=== PATIENT | male | born 1945 | race African-American/Black ===

== ENCOUNTER 2022-07-10 18:20 | Inpatient (IN) | payer OTHER ==
[~2022-07-10] VITALS: Ht 180.3 cm; Wt 60.3 kg
[~2022-07-10 18:20] MED LIST: CYAN50003 PO; EMTR1TAB11 PO; NEVI400T5 PO; OXYC-662 MT; [UNRECOGNIZED DRUG - CODE] PO
[2022-07-10] MEDS ORDERED: MORPHINE SULFATE 4 MG/ML CPJ (NOT FOR IM USE) IV STA (19:30)
[2022-07-10] MEDS ORDERED: SODIUM CHLORIDE 0.9% 1000ML BAG (SEPSIS BOLUS) IV ONE (19:30)
[2022-07-10] MEDS ORDERED: METOPROLOL TARTRATE 5MG/5ML VIAL IV ONE ×2 (19:30→23:30)
[2022-07-10 20:26] LABS: BASOPHILS % 0.2 % (0.0-2.0); HEMATOCRIT. 53.7 % (42.0-52.0); HEMOGLOBIN. 18.1 g/dL (14.0-18.0); MEAN CORPUSCULAR HEMOGLOBIN 34.5 pg (28.0-32.0); MEAN CORPUSCULAR VOLUME 102.3 fL (80.0-94.0); MEAN PLATELET VOLUME 7.1 fl (7.4-10.4); MONOCYTES % 7.9 % (2.0-8.0); NEUTROPHILS % 76.9 % (40.0-76.0); PLATELET 284 x1000/uL (130-400); RED BLOOD CELL COUNT 5.25 mill/uL (4.7-6.1); RED CELL DISTRIBUTION WIDTH 13.4 % (11.6-14.6)
[2022-07-10 20:35] LABS: CHLORIDE 99 mEq/L (98-107)
[2022-07-10] MEDS ORDERED: CEFTRIAXONE 1 G PREMIX 50 ML IV NR (21:30)
[2022-07-10] MEDS ORDERED: IOHEXOL-300 100 ML BOTTLE ONE (21:57)
[2022-07-10 22:40] LABS: CLARITY URINE CLEAR (CLEAR); COLOR URINE YELLOW (YELLOW); KETONES URINE NEGATIVE (NEGATIVE); LEUKOCYTE ESTERASE URINE NEGATIVE (NEGATIVE); NITRITE URINE NEGATIVE (NEGATIVE); OCCULT BLOOD URINE 1+ (NEGATIVE); PROTEIN URINE NEGATIVE (NEGATIVE); SPECIFIC GRAVITY URINE 1.028 (1.005-1.030); UROBILINOGEN URINE 0.2 E.U./dL (0.2-1.0)
[2022-07-10 22:58] LABS: *AMPHETAMINES SCREEN URINE NEGATIVE (NEGATIVE); *BARBITURATES SCREEN URINE PRESUMTIVE POSITIVE (NEGATIVE); *BENZODIAZEPINES SCREEN URINE NEGATIVE (NEGATIVE); *COCAINE SCREEN URINE NEGATIVE (NEGATIVE); CANNABINOID URINE SCREEN NEGATIVE (NEGATIVE); METHADONE URINE SCREEN NEGATIVE (NEGATIVE); OPIATES URINE SCREEN PRESUMTIVE POSITIVE (NEGATIVE); PHENCYCLIDINE URINE SCREEN NEGATIVE (NEGATIVE)
[2022-07-10] MEDS ORDERED: MORPHINE SULFATE 4 MG/ML CPJ (NOT FOR IM USE) IV ONE (23:15)
[2022-07-10 23:55] VITALS: BP 146/100
[2022-07-11] MEDS ORDERED: METOPROLOL TARTRATE 50MG TABLET PO NR (03:00)
[2022-07-11] MEDS: ACETAMINOPHEN 325MG TABLET PO PRN ×2 (03:41→17:26)
[2022-07-11] MEDS: HYDROCODONE/ACETAMINOPHEN 5/325MG TABLET PO PRN ×4 (04:25→19:11)
[2022-07-11 08:00] VITALS: BP 122/87
[2022-07-11] MEDS: METOPROLOL TARTRATE 50MG TABLET PO SCH ×2 (08:47→21:22)
[2022-07-11 10:30] LABS: BASOPHILS % 0.2 % (0.0-2.0); EOSINOPHILS % 0.1 % (0.0-5.0); HEMATOCRIT. 47.1 % (42.0-52.0); HEMOGLOBIN. 15.8 g/dL (14.0-18.0); LYMPHOCYTES % 19.6 % (20.0-50.0); MEAN CORPUSCULAR HEMOGLOBIN 34.5 pg (28.0-32.0); MEAN CORPUSCULAR VOLUME 102.9 fL (80.0-94.0); MEAN PLATELET VOLUME 6.8 fl (7.4-10.4); MONOCYTES % 6.8 % (2.0-8.0); NEUTROPHILS % 73.3 % (40.0-76.0); PLATELET 270 x1000/uL (130-400); RED BLOOD CELL COUNT 4.58 mill/uL (4.7-6.1); RED CELL DISTRIBUTION WIDTH 13.4 % (11.6-14.6)
[2022-07-11 10:32] LABS: CHLORIDE 104 mEq/L (98-107)
[2022-07-11 10:47] LABS: HDL CHOLESTEROL 44 mg/dL (40-59); LDL CHOLESTEROL 82 mg/dL (5-100)
[2022-07-11] MEDS ORDERED: CEFTRIAXONE 1 G PREMIX 50 ML IV SCH (12:00)
[2022-07-11 12:09] VITALS: BP 130/83
[2022-07-11] MEDS: ENOXAPARIN 40MG/0.4ML SYR SUBCUT SCH (13:41)
[2022-07-11] MEDS ORDERED: POTASSIUM CHLORIDE 20MEQ TABLET SR PO NR (15:45)
[2022-07-11] MEDS: LOSARTAN POTASSIUM 25 MG TABLET PO SCH (15:45)
[2022-07-11 16:00] VITALS: BP 137/94
[2022-07-11] MEDS: AMIODARONE HCL 200 MG TABLET PO SCH (16:38)
[2022-07-11] MEDS ORDERED: NALOXONE HCL 0.4MG/ML VIAL IV PRN (19:30)
[2022-07-11 20:00] VITALS: BP 134/86
[2022-07-11] MEDS ORDERED: CEFTRIAXONE 1,000 MG in DEXTROSE 5% WATER 50 ML IV SCH (22:00)
[2022-07-12] VITALS (7 sets, daily range): BP systolic 116–155; BP diastolic 70–90
[2022-07-12] MEDS: HYDROCODONE/ACETAMINOPHEN 5/325MG TABLET PO PRN ×3 (02:00→12:37)
[2022-07-12] MEDS: AMIODARONE HCL 200 MG TABLET PO SCH ×2 (09:25→21:22)
[2022-07-12] MEDS: METOPROLOL TARTRATE 50MG TABLET PO SCH ×2 (09:26→21:22)
[2022-07-12] MEDS: LOSARTAN POTASSIUM 25 MG TABLET PO SCH (09:26)
[2022-07-12] MEDS: ENOXAPARIN 40MG/0.4ML SYR SUBCUT SCH (12:38)
[2022-07-12 15:38] LABS: CHLORIDE 102 mEq/L (98-107)
== END 2022-07-12 21:30 | disposition home or self-care (01) | DRG 309 ==
LOC: ER 18:20 → 6WST 22:29 → ENRESERV 23:14
PROVIDERS: ADMIT Internal Medicine; ATTEND Internal Medicine
DX: I48.0 Paroxysmal atrial fibrillation (principal); I50.22 Chronic systolic (congestive) heart failure; M54.50 Low back pain, unspecified; I11.0 Hypertensive heart disease with heart failure; J44.9 Chronic obstructive pulmonary disease, unspecified; N13.9 Obstructive and reflux uropathy, unspecified; E87.6 Hypokalemia; Z79.899 Other long term (current) drug therapy; Z88.8 Allergy status to other drugs, medicaments and biological substances
CPT/HCPCS: 36415; 71045; 72148; 74177; 80048; 80053; 80061; 80305; 81003; 83605; 84145; 84436; 84443; 84484; 85025; 93005; 93306; 97162; 99291; J0696; J1650; J2270; J3490; J7030; J7060; Q9967

== ENCOUNTER 2022-09-20 02:34 | Inpatient (IN) | payer MEDICARE, OTHER ==
[~2022-09-20] VITALS: Ht 180.3 cm; Wt 61.8 kg
[2022-09-20] MEDS ORDERED: SODIUM CHLORIDE 0.9% 1,000 ML IV ONE (03:45)
[2022-09-20] MEDS ORDERED: ACETAMINOPHEN 325MG TABLET PO STA (03:45)
[2022-09-20] MEDS ORDERED: METOCLOPRAMIDE HCL 10MG/2ML VIAL IV ONE (04:00)
[2022-09-20 04:10] LABS: CHLORIDE 103 mEq/L (98-107)
[2022-09-20 04:29] LABS: BASOPHILS % 0.6 % (0.0-2.0); EOSINOPHILS % 4.3 % (0.0-5.0); LYMPHOCYTES % 22.2 % (20.0-50.0); MEAN CORPUSCULAR HEMOGLOBIN 34.3 pg (28.0-32.0); MEAN CORPUSCULAR VOLUME 100.5 fL (80.0-94.0); MEAN PLATELET VOLUME 7.1 fl (7.4-10.4); NEUTROPHILS % 62.9 % (40.0-76.0); PLATELET 167 x1000/uL (130-400); RED BLOOD CELL COUNT 3.79 mill/uL (4.7-6.1)
[2022-09-20] MEDS ORDERED: ASPIRIN 81MG TABLET PO ONE (06:45)
[2022-09-20] MEDS ORDERED: MORPHINE SULFATE 4 MG/ML CPJ (NOT FOR IM USE) IV ONE (08:15)
[2022-09-20] MEDS ORDERED: HEPARIN 5000 UNITS/ML VIAL IV ONE (08:15)
[2022-09-20] MEDS ORDERED: KETOROLAC 30MG/ML VIAL IV ONE (15:15)
[2022-09-20 16:30] VITALS: BP 134/82
[2022-09-20] MEDS ORDERED: ACETAMINOPHEN 325MG TABLET PO PRN (17:30)
[2022-09-20] MEDS ORDERED: ONDANSETRON HCL 4MG/2ML INJ IV PRN (17:30)
[2022-09-20] MEDS ORDERED: OXYC-662 MT (19:06)
[2022-09-20 20:00] VITALS: BP 105/90
[2022-09-20] MEDS ORDERED: INFLUENZA VACCINE 05/PF 0.5 ML SYRINGE IM ONE (21:15)
[2022-09-20 21:26] LABS: CREATINE KINASE MB FRACTION 2.4 ng/mL (0.5-3.6)
[2022-09-21] VITALS: BP 125/84
[2022-09-21] MEDS: IPRATROPIUM/ALBUTEROL 0.5-3(2.5)MG/3ML NEB HHN PRN (00:03)
[2022-09-21] MEDS: HYDROCODONE/ACETAMINOPHEN 5/325MG TABLET PO PRN ×5 (00:36→23:17)
[2022-09-21 03:25] VITALS: BP 122/79
[2022-09-21 08:00] VITALS: BP 146/97
[2022-09-21] MEDS ORDERED: CLONIDINE 0.1MG TABLET PO PRN (10:45)
[2022-09-21 11:55] VITALS: BP 136/90
[2022-09-21] MEDS: ASPIRIN 81MG EC TABLET PO SCH (13:15)
[2022-09-21] MEDS: LOSARTAN POTASSIUM 50 MG TABLET PO SCH (13:31)
[2022-09-21] MEDS: NITROGLYCERIN OINT 1GM/INCH UDPKT TD SCH ×2 (13:31→21:37)
[2022-09-21 14:39] LABS: BASOPHILS % 0.5 % (0.0-2.0); EOSINOPHILS % 6.2 % (0.0-5.0); HEMATOCRIT. 35.3 % (42.0-52.0); HEMOGLOBIN. 12.1 g/dL (14.0-18.0); LYMPHOCYTES % 22.2 % (20.0-50.0); MEAN CORPUSCULAR HEMOGLOBIN 34.6 pg (28.0-32.0); MEAN CORPUSCULAR VOLUME 100.9 fL (80.0-94.0); MEAN PLATELET VOLUME 6.9 fl (7.4-10.4); MONOCYTES % 8.7 % (2.0-8.0); NEUTROPHILS % 62.4 % (40.0-76.0); PLATELET 169 x1000/uL (130-400); RED CELL DISTRIBUTION WIDTH 12.8 % (11.6-14.6)
[2022-09-21 14:48] LABS: CHLORIDE 104 mEq/L (98-107)
[2022-09-21 16:00] VITALS: BP 116/70
[2022-09-21] MEDS: AMLODIPINE 5MG TABLET PO SCH (16:02)
[2022-09-21 20:00] VITALS: BP 157/112
[2022-09-22] VITALS: BP 144/100
[2022-09-22] MEDS: IPRATROPIUM/ALBUTEROL 0.5-3(2.5)MG/3ML NEB HHN PRN (00:38)
[2022-09-22] MEDS ORDERED: *PATIENT'S OWN MEDICATION STORAGE XX SCH (01:00)
[2022-09-22] MEDS: HYDROCODONE/ACETAMINOPHEN 5/325MG TABLET PO PRN ×2 (03:50→18:13)
[2022-09-22 04:00] VITALS: BP 139/92
[2022-09-22] MEDS: NITROGLYCERIN OINT 1GM/INCH UDPKT TD SCH (05:11)
[2022-09-22 08:00] VITALS: BP 133/89
[2022-09-22 08:26] LABS: BASOPHILS % 0.3 % (0.0-2.0); EOSINOPHILS % 8.4 % (0.0-5.0); HEMATOCRIT. 34.2 % (42.0-52.0); HEMOGLOBIN. 11.8 g/dL (14.0-18.0); LYMPHOCYTES % 22.3 % (20.0-50.0); MEAN CORPUSCULAR HEMOGLOBIN 34.2 pg (28.0-32.0); MEAN CORPUSCULAR VOLUME 99.2 fL (80.0-94.0); MONOCYTES % 8.2 % (2.0-8.0); NEUTROPHILS % 60.8 % (40.0-76.0); PLATELET 146 x1000/uL (130-400); RED BLOOD CELL COUNT 3.44 mill/uL (4.7-6.1); RED CELL DISTRIBUTION WIDTH 12.9 % (11.6-14.6)
[2022-09-22 08:46] LABS: CHLORIDE 102 mEq/L (98-107)
[2022-09-22] MEDS: ASPIRIN 81MG EC TABLET PO SCH (09:30)
[2022-09-22] MEDS: LOSARTAN POTASSIUM 50 MG TABLET PO SCH (09:30)
[2022-09-22] MEDS: AMLODIPINE 5MG TABLET PO SCH (09:30)
[2022-09-22 12:00] VITALS: BP_SYST 112; BP_SYST 113; BP_DIAS 61; BP_DIAS 68
[2022-09-22] MEDS: AMLODIPINE 2.5MG TABLET PO SCH (12:20)
[2022-09-22 16:00] VITALS: BP 119/78
[2022-09-22 20:00] VITALS: BP 156/95
[2022-09-22] MEDS: KETOROLAC 15MG/ML VIAL IV PRN (22:17)
[2022-09-22] MEDS ORDERED: ENOXAPARIN 60MG/0.6ML SYR SUBCUT NR (22:27)
[2022-09-23] VITALS: BP 136/95
[2022-09-23] MEDS: IPRATROPIUM/ALBUTEROL 0.5-3(2.5)MG/3ML NEB HHN PRN (01:09)
[2022-09-23 04:00] VITALS: BP 140/94
[2022-09-23] MEDS: KETOROLAC 15MG/ML VIAL IV PRN ×3 (04:43→17:23)
[2022-09-23 07:17] LABS: BASOPHILS % 0.3 % (0.0-2.0); EOSINOPHILS % 8.1 % (0.0-5.0); HEMATOCRIT. 34.1 % (42.0-52.0); LYMPHOCYTES % 18.8 % (20.0-50.0); MEAN CORPUSCULAR HEMOGLOBIN 34.5 pg (28.0-32.0); MEAN CORPUSCULAR VOLUME 98.4 fL (80.0-94.0); MONOCYTES % 8.3 % (2.0-8.0); NEUTROPHILS % 64.5 % (40.0-76.0); PLATELET 153 x1000/uL (130-400); RED BLOOD CELL COUNT 3.47 mill/uL (4.7-6.1); RED CELL DISTRIBUTION WIDTH 12.9 % (11.6-14.6)
[2022-09-23 07:21] LABS: INR 0.9; PROTHROMBIN TIME 10.2 sec (9.6-11.0)
[2022-09-23 08:30] VITALS: BP 138/89
[2022-09-23] MEDS: AMLODIPINE 2.5MG TABLET PO SCH (09:24)
[2022-09-23] MEDS: LOSARTAN POTASSIUM 50 MG TABLET PO SCH (09:24)
[2022-09-23] MEDS: ASPIRIN 81MG EC TABLET PO SCH (09:24)
[2022-09-23] MEDS: ENOXAPARIN 60MG/0.6ML SYR SUBCUT SCH ×2 (09:25→20:53)
[2022-09-23 09:53] LABS: CHLORIDE 105 mEq/L (98-107)
[2022-09-23 12:00] VITALS: BP 142/87
[2022-09-23 16:00] VITALS: BP 138/88
[2022-09-23] MEDS: AMLODIPINE 5MG TABLET PO SCH (17:24)
[2022-09-23 20:00] VITALS: BP 142/90
[2022-09-24] VITALS: BP 137/85
[2022-09-24] MEDS: KETOROLAC 15MG/ML VIAL IV PRN (01:04)
[2022-09-24 04:00] VITALS: BP 143/98
[2022-09-24 07:50] VITALS: BP 141/97
[2022-09-24 08:45] LABS: BASOPHILS % 0.4 % (0.0-2.0); EOSINOPHILS % 6.3 % (0.0-5.0); HEMATOCRIT. 36.8 % (42.0-52.0); HEMOGLOBIN. 12.5 g/dL (14.0-18.0); MEAN CORPUSCULAR HEMOGLOBIN 33.8 pg (28.0-32.0); MEAN CORPUSCULAR VOLUME 99.4 fL (80.0-94.0); MONOCYTES % 7.4 % (2.0-8.0); NEUTROPHILS % 66.9 % (40.0-76.0); PLATELET 159 x1000/uL (130-400); RED CELL DISTRIBUTION WIDTH 13.2 % (11.6-14.6)
[2022-09-24] MEDS ORDERED: NALOXONE HCL 0.4MG/ML VIAL IV PRN (09:00)
[2022-09-24] MEDS: AMLODIPINE 5MG TABLET PO SCH (09:11)
[2022-09-24] MEDS: LOSARTAN POTASSIUM 50 MG TABLET PO SCH (09:11)
[2022-09-24] MEDS: ASPIRIN 81MG EC TABLET PO SCH (09:11)
[2022-09-24] MEDS: ENOXAPARIN 60MG/0.6ML SYR SUBCUT SCH (09:12)
[2022-09-24 09:13] LABS: CHLORIDE 102 mEq/L (98-107)
[2022-09-24] MEDS ORDERED: FAMOTIDINE 20MG/2ML VIAL IV NR (10:15)
[2022-09-24] MEDS ORDERED: METHYLPREDNISOLONE SOD SUCC 125 MG/2 ML VIAL IV NR (10:15)
[2022-09-24] MEDS ORDERED: DIPHENHYDRAMINE 50MG/ML VIAL IV NR (10:15)
[2022-09-24] MEDS ORDERED: IOHEXOL-350 100 ML BOTTLE ONE ×2 (11:33→12:03)
[2022-09-24 12:00] VITALS: BP 145/93
[2022-09-24 15:03] VITALS: BP 140/89
== END 2022-09-24 17:41 | disposition home or self-care (01) | DRG 311 ==
LOC: ER 02:44 → 7EST 12:58 → EDBEDREQTM 13:02 → EDBEDREQSVC 13:02 → EDBEDREQ 13:02 → 7EST 09-24 08:51
PROVIDERS: ADMIT Internal Medicine; ATTEND Internal Medicine
DX: I24.8 Other forms of acute ischemic heart disease (principal); G96.08 Other cranial cerebrospinal fluid leak; Z68.1 Body mass index [BMI] 19.9 or less, adult; E44.1 Mild protein-calorie malnutrition; I10 Essential (primary) hypertension; Z20.822 Contact with and (suspected) exposure to COVID-19; J44.9 Chronic obstructive pulmonary disease, unspecified; G89.29 Other chronic pain; I34.0 Nonrheumatic mitral (valve) insufficiency; M51.9 Unspecified thoracic, thoracolumbar and lumbosacral intervertebral disc disorder; Z88.8 Allergy status to other drugs, medicaments and biological substances; Z79.899 Other long term (current) drug therapy; Z91.041 Radiographic dye allergy status; Z91.199 Patient's noncompliance with other medical treatment and regimen due to unspecified reason
CPT/HCPCS: 36415; 70551; 71045; 71275; 78582; 80048; 80053; 80061; 80076; 82550; 82553; 84484; 85025; 85379; 87426; 90686; 93005; 93306; 93970; 94640; 99285; A9558; C9803; J1200; J1644; J1650; J1885; J2270; J2765; J2930; J3490; J7030; Q9967

== ENCOUNTER 2022-09-28 18:30 | Emergency (ER) | payer OTHER ==
[~2022-09-28] VITALS: Ht 180.3 cm; Wt 76.0 kg
[2022-09-28 18:52] VITALS: BP 138/91
== END 2022-09-29 01:03 | disposition left against medical advice (07) ==
LOC: ER 18:30
DX: Z53.21 Procedure and treatment not carried out due to patient leaving prior to being seen by health care provider (principal)

== ENCOUNTER 2023-04-08 03:17 | Emergency (ER) | payer MEDICARE, OTHER ==
[~2023-04-08] VITALS: Ht 180.3 cm; Wt 77.0 kg
[~2023-04-08 03:17] MED LIST changes: -CYAN50003 PO; +CYAN50007 PO
[2023-04-08 03:19] VITALS: O2SAT 98
[2023-04-08] MEDS ORDERED: ONDANSETRON HCL 4MG/2ML INJ IV STA (03:56)
[2023-04-08] MEDS ORDERED: MORPHINE SULFATE 4 MG/ML CPJ (NOT FOR IM USE) IV STA (03:56)
[2023-04-08] MEDS ORDERED: SODIUM CHLORIDE 0.9% 1,000 ML IV ONE (04:00)
[2023-04-08 05:27] LABS: BASOPHILS % 0.3 % (0.0-2.0); EOSINOPHILS % 4.6 % (0.0-5.0); HEMATOCRIT. 41.6 % (42.0-52.0); LYMPHOCYTES % 19.1 % (20.0-50.0); MEAN CORPUSCULAR HEMOGLOBIN 33.5 pg (28.0-32.0); MEAN CORPUSCULAR HGB CONC 33.6 g/dL (31.0-37.0); MEAN CORPUSCULAR VOLUME 99.7 fL (80.0-94.0); MEAN PLATELET VOLUME 7.3 fl (7.4-10.4); MONOCYTES % 9.4 % (2.0-8.0); NEUTROPHILS % 66.6 % (40.0-76.0); PLATELET 182 x1000/uL (130-400); RED BLOOD CELL COUNT 4.17 mill/uL (4.7-6.1); RED CELL DISTRIBUTION WIDTH 13.7 % (11.6-14.6); WHITE BLOOD COUNT 4.6 x1000/uL (4.5-11.0)
[2023-04-08 05:45] LABS: CHLORIDE 105 mEq/L (98-107); INDEX HEMOLYSI 2 (1-3); INDEX ICTERIC 1 (1-4); INDEX LIPEMIC 1 (1-3); POTASSIUM 3.7 mEq/L (3.5-5.1); SODIUM 136 mEq/L (136-145)
[2023-04-08 05:53] LABS: ALANINE AMINOTRANSFERASE 24 IU/L (13-61); ALBUMIN 2.9 g/dL (3.4-5.0); ASPARTATE AMINOTRANSFERASE 25 IU/L (15-37); BILIRUBIN TOTAL 0.5 mg/dL (0.1-1.0); CALCIUM 8.4 mg/dL (8.5-10.1); CARBON DIOXIDE 27 mEq/L (21-32); GLUCOSE 102 mg/dL (70-105); PROTEIN TOTAL 8.1 g/dL (6.0-8.3); UREA NITROGEN BLOOD 21 mg/dL (7-21)
[2023-04-08] MEDS ORDERED: MORPHINE SULFATE 2 MG/ML CPJ (NOT FOR IM USE) IV ONE (06:00)
[2023-04-08] MEDS ORDERED: DOCU-138 MT ×2 (06:59)
[2023-04-08] MEDS ORDERED: OXYC-100 MT (06:59)
[2023-04-08 10:40] VITALS: BP 132/76; PULSE 83; RESP 22; TEMP 97.5
[2023-04-20] MEDS ORDERED: LEVO-65 MT ×2 (09:18)
[2023-04-20] MEDS ORDERED: ATROV INH (09:18)
[2023-04-24] MEDS ORDERED: NEVI400T5 PO (14:43)
[2023-04-24] MEDS ORDERED: OXYC-100 MT (14:43)
[2023-04-24] MEDS ORDERED: DOCU-150 PO (14:43)
== END 2023-04-08 11:06 | disposition home or self-care (01) ==
LOC: ER 03:17
DX: M54.59 Other low back pain (principal); R10.9 Unspecified abdominal pain; J45.909 Unspecified asthma, uncomplicated; Z79.899 Other long term (current) drug therapy
CPT/HCPCS: 99285; 74176; 96374; 71045; 96361; 96375; 80053; 83605; 83690; 85025; 36415; 93005; 96376; J2405; J2270 ×2; J7030